=== PATIENT | male | born 1995 | race Caucasian/White ===

== ENCOUNTER 2018-07-22 07:37 | Emergency (ER) | payer BC ==
[2018-07-22] MEDS ORDERED: NA CHLORIDE 0.9% 1,000 ML ONE (08:11)
[2018-07-22 08:26] LABS: Absolute Lymphocytes (CBC) 1.3 K/uL (0.7-4.9); Absolute Monocytes 0.4 K/uL (0.1-1.3); Absolute Neutrophil 3.6 K/uL (1.8-8.0); Basophils % 1.1 % (0-1.3); Hematocrit 45.9 % (39.6-49.0); Lymphocytes % 23.8 % (15.3-44.8); MPV 9.3 fL (7.6-11.3); Monocytes % 7.3 % (3.3-12.3); RBC Red Blood Cell Count 4.94 M/uL (4.33-5.43)
[2018-07-22 08:35] LABS: BUN Blood Urea Nitrogen 5 mg/dL (7-18); Bicarbonate 25 mmol/L (21-32); Glucose Level 105 mg/dL (74-106); Potassium 3.5 mmol/L (3.5-5.1); Sodium Level 147 mmol/L (136-145)
[2018-07-22] MEDS ORDERED: BUPIVACAINE 0.5% PF 10 ML VIAL ONE (09:09)
[2018-07-22] MEDS ORDERED: LIDOCAINE 1% MPF 5 ML VIAL ONE (09:09)
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
[2018-07-22] MEDS ORDERED: TETANUS & DIPHTHERIA TOX,ADULT 0.5 ML VIAL ONE (11:43)
== END 2018-07-22 12:04 | disposition home or self-care (01) ==
LOC: ER 07:37
PROC: 0CQ0XZZ Repair Upper Lip, External Approach (ICD-10-PCS; principal; 2018-07-22)
DX: S01.511A Laceration without foreign body of lip, initial encounter (principal); Y04.2XXA Assault by strike against or bumped into by another person, initial encounter; Y93.9 Activity, unspecified; Y92.9 Unspecified place or not applicable; Z23 Encounter for immunization
CPT/HCPCS: 36415; 70450; 70486; 71260; 72125; 74177; 76377; 80048; 85025; 86850; 86900; 86901; 90714; 96360; 99284; J7030; Q9967

== ENCOUNTER 2020-09-25 05:11 | Emergency (ER) | payer BC ==
[2020-09-25] MEDS ORDERED: LIDOCAINE 1% MPF 30 ML VIAL ONE (06:31)
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
--- NOTE | 2020-09-25 07:14 | ER ---
Nurse's Notes [facility] Name: Adam Jett Age: 24 yrs Sex: Male : 1995 Arrival Date: 09/25/2020 Time: 05:16 Bed 14 Private MD: Diagnosis: Lip Laceration Presentation: 09/25 05:24 Chief complaint: Patient states: C/O lip injury, he just wants to be sutured. Coronavirus screen: Client denies travel out of the [place] in the last 14 days. Ebola Screen: Patient negative for fever greater than or equal to 101.5 degrees Fahrenheit, and additional compatible Ebola Virus Disease symptoms Patient denies exposure to infectious person. Initial Sepsis Screen: Does the patient meet any 2 criteria? No. Patient's initial sepsis screen is negative. Does the patient have a suspected source of infection? Yes: Skin breakdown/wound. Risk Assessment: Do you want to hurt yourself or someone else? Patient reports no desire to harm self or others. Onset of symptoms was September 25, 2020. 05:24 Method Of Arrival: Ambulatory 05:24 Acuity: KIRT 4 Historical: - Allergies: 05:26 No Known Allergies; - Home Meds: 05:26 None [Active]; - PMHx: 05:26 None; - PSHx: 05:26 None; - Immunization history:: Adult Immunizations up to date. - Social history:: Smoking status: Patient uses street drugs, marijuana. Screenin:25 Abuse screen: Denies threats or abuse. Denies injuries from another. Nutritional screening: No deficits noted. Tuberculosis screening: No symptoms or risk factors identified. Fall Risk None identified. Assessment: 05:26 General: Appears in no apparent distress. Behavior is calm, cooperative, appropriate for age. Pain: Denies pain. Neuro: Level of Consciousness is awake, alert, obeys commands, Oriented to person, place, time, situation. Cardiovascular: Capillary refill < 3 seconds. Respiratory: Airway is patent Respiratory effort is even, unlabored, Respiratory pattern is regular, symmetrical. GI: Abdomen is flat, non-distended. : No signs and/or symptoms were reported regarding the genitourinary system. EENT: laceration on lower lip. Derm: Skin is intact, is healthy with good turgor, Skin is pink, warm \T\ dry. normal. Musculoskeletal: Circulation, motion, and sensation intact. 07:26 Reassessment: Pt c/o facial pain 12/08, requesting pain medication. Dr. Ellsworth notified, hb Motrin administered as ordered. Discharge pending shot time. Family at bedside. Vital Signs: 05:24 BP 113 / 81; Pulse 86; Resp 18; Temp 97.8; Pulse Ox 99% ; Weight 97.52 kg; Height 6 ft. 0 in. (182.88 cm); 05:24 Body Mass Index 29.16 (97.52 kg, 182.88 cm) ED Course: 05:16 Patient arrived in ED. 05:23 Rito Chou, RN is Primary Nurse. 05:25 Triage completed. 05:27 Patient has correct armband on for positive identification. Bed in low position. Call light in reach. Side rails up X 1. Pulse ox on. NIBP on. 05:28 Arm band placed on right wrist. 05:37 Venu Ellsworth MD is Attending Physician. [facility] 07:37 No provider procedures requiring assistance completed. Patient did not have IV access hb during this emergency room visit. Administered Medications: 07:20 Drug: Tetanus-Diphtheria Toxoid Adult 0.5 ml {Advertising Clerk: [employer]. Exp: hb 07/03/2022. Lot #: [id number]. } Route: IM; Site: right deltoid; 07:37 Follow up: Response: No adverse reaction 07:26 Drug: Motrin (ibuprofen) 800 mg Route: PO; hb 07:37 Follow up: Response: Medication administered at discharge. hb 07:37 Follow up: Response: Medication administered at discharge. hb Outcome: 07:13 Discharge ordered by . [facility] 07:37 Discharged to home ambulatory, with significant other. hb 07:37 Condition: stable 07:37 Discharge instructions given to patient, Instructed on discharge instructions, follow up and referral plans. medication usage, Demonstrated understanding of instructions, follow-up care, medications. 07:54 Patient left the ED. [facility] Signatures: Rasheeda Grigsby Heather, RN RN Rito Chou RN RN Olga Gibbs RN RN [facility] Venu Ellsworth MD MD mh7
[2020-09-25] MEDS ORDERED: TETANUS & DIPHTHERIA TOX,ADULT 0.5 ML VIAL ONE (07:36)
[2020-09-25] MEDS ORDERED: IBUPROFEN 400 MG TAB ONE (07:40)
[2020-09-25 08:01] VITALS: BP 113/81; TEMP 97.8; O2SAT 99
== END 2020-09-25 07:54 | disposition home or self-care (01) ==
LOC: ER 05:11
PROC: 0CQ1XZZ Repair Lower Lip, External Approach (ICD-10-PCS; principal; 2020-09-25)
DX: S01.511A Laceration without foreign body of lip, initial encounter (principal); Y04.2XXA Assault by strike against or bumped into by another person, initial encounter; Y92.89 Other specified places as the place of occurrence of the external cause; Z23 Encounter for immunization
CPT/HCPCS: 90471; 90714; 99283